=== PATIENT | male | born 1950 | race Caucasian/White ===

== ENCOUNTER 2017-07-19 09:14 | Emergency (ER) | payer OTHER ==
[~2017-07-19] VITALS: Ht 180.3 cm; Wt 83.9 kg
[~2017-07-19 09:14] MED LIST: ASPI325; Senna8.6 M1; TAMS.4ER
[2017-07-19] MEDS ORDERED: BLOOD PRESSURE (09:23)
[2017-07-19] MEDS ORDERED: BENZ100A PO (09:45)
[2017-07-19] MEDS ORDERED: Mucinex600 MG PO (09:45)
[2017-07-19] MEDS ORDERED: Cheratussin AC118 ML PO (09:45)
[2017-07-19] MEDS ORDERED: Flonase 0.05% N16 GM (09:45)
== END 2017-07-19 10:01 | disposition home or self-care (01) ==
LOC: ER 09:14
DX: J06.9 Acute upper respiratory infection, unspecified (principal); I10 Essential (primary) hypertension; Z88.5 Allergy status to narcotic agent; Z88.8 Allergy status to other drugs, medicaments and biological substances; Z88.6 Allergy status to analgesic agent; Z79.82 Long term (current) use of aspirin; Z79.899 Other long term (current) drug therapy; Z87.891 Personal history of nicotine dependence; Z96.659 Presence of unspecified artificial knee joint
CPT/HCPCS: 99283

== ENCOUNTER 2018-11-29 07:51 | Day surgery (SDC) | payer OTHER ==
[~2018-11-29] VITALS: Ht 177.8 cm; Wt 92.7 kg
[~2018-11-29 07:51] MED LIST changes: +BENZ100A PO; +BLOOD PRESSURE; +Cheratussin AC118 ML PO; +Flonase 0.05% N16 GM; +Mucinex600 MG PO; +Prinivil10 MG
[2018-11-29] MEDS ORDERED: AMLO10 (08:26)
[2018-11-29] MEDS ORDERED: OMEPRAZOLE MAGN20 MG (08:26)
[2018-11-29] MEDS ORDERED: NAPR220 (08:27)
[2018-11-29] MEDS ORDERED: CETI5 (08:27)
== END 2018-11-30 10:21 | disposition home or self-care (01) ==
LOC: ORSCSDS 07:51
PROVIDERS: Internal Medicine Gastroenterology
PROC: 0DB58ZX Excision of Esophagus, Via Natural or Artificial Opening Endoscopic, Diagnostic (ICD-10-PCS; principal; 2018-11-29 09:30)
PROC: 0DB68ZX Excision of Stomach, Via Natural or Artificial Opening Endoscopic, Diagnostic (ICD-10-PCS; principal; 2018-11-29 09:30)
PROC: 0D757ZZ Dilation of Esophagus, Via Natural or Artificial Opening (ICD-10-PCS; principal; 2018-11-29 09:30)
DX: K21.0 Gastro-esophageal reflux disease with esophagitis (principal); R13.10 Dysphagia, unspecified; K44.9 Diaphragmatic hernia without obstruction or gangrene; K22.2 Esophageal obstruction; K29.80 Duodenitis without bleeding; K29.70 Gastritis, unspecified, without bleeding; Z87.891 Personal history of nicotine dependence; I10 Essential (primary) hypertension; Z79.82 Long term (current) use of aspirin; Z79.899 Other long term (current) drug therapy
CPT/HCPCS: 88305; 88342; J2704; J7120

== ENCOUNTER 2019-04-18 10:17 | Day surgery (SDC) | payer OTHER ==
[~2019-04-18] VITALS: Ht 177.8 cm; Wt 91.1 kg
[~2019-04-18 10:17] MED LIST changes: +AMLO10; +ASPI325EC PO; +CETI5; +NAPR220; +Nortriptyline H10 MG PO; +OMEPRAZOLE MAGN20 MG; +OMEPRAZOLE20 MG PO; +Prinivil10 MG PO; +TAMS.4ER PO
== END 2019-04-18 12:18 | disposition home or self-care (01) ==
LOC: ORSCSDS 10:17
PROVIDERS: Internal Medicine Gastroenterology
PROC: 0DBH8ZX Excision of Cecum, Via Natural or Artificial Opening Endoscopic, Diagnostic (ICD-10-PCS; principal; 2019-04-18 11:45)
PROC: 0DB58ZX Excision of Esophagus, Via Natural or Artificial Opening Endoscopic, Diagnostic (ICD-10-PCS; principal; 2019-04-18 11:45)
DX: R13.10 Dysphagia, unspecified (principal); Z12.11 Encounter for screening for malignant neoplasm of colon; Z86.010 Personal history of colon polyps; D12.0 Benign neoplasm of cecum; K22.10 Ulcer of esophagus without bleeding; K44.9 Diaphragmatic hernia without obstruction or gangrene; K64.8 Other hemorrhoids; K63.89 Other specified diseases of intestine; E78.5 Hyperlipidemia, unspecified; Z87.891 Personal history of nicotine dependence; E66.9 Obesity, unspecified; Z68.32 Body mass index [BMI] 32.0-32.9, adult; I10 Essential (primary) hypertension; Z79.82 Long term (current) use of aspirin; Z79.899 Other long term (current) drug therapy
CPT/HCPCS: 88305; 88312; J2704; J7120

== ENCOUNTER → 2021-07-31 | Outpatient (CLI) | payer OTHER ==
[2021-08-02 13:38] LABS: Stool Occult Bld Immuno 1 Negative (NEGATIVE)
== END | disposition home or self-care (01) ==
LOC: LAB SHORT 15:30
PROVIDERS: Physician Assistant
DX: Z12.11 Encounter for screening for malignant neoplasm of colon (principal)
CPT/HCPCS: 82274

== ENCOUNTER → 2022-07-28 | Outpatient (CLI) | payer OTHER | LOC: LAB SHORT 09:20 → LAB 09:20 | DX: R39.9 Unspecified symptoms and signs involving the genitourinary system (principal) | CPT/HCPCS: 87086 ==